=== PATIENT | male | born 1955 | race American Indian/Alaskan Native ===

== ENCOUNTER 2017-04-23 19:41 | Emergency (ER) | payer MEDICARE ==
[2017-04-24] MEDS ORDERED: DELTASONE PO ONE (10:22)
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
[2017-04-24 10:25] VITALS: BP 136/82
== END 2017-04-24 10:35 | disposition home or self-care (01) ==
LOC: ED 19:41
DX: M25.562 Pain in left knee (principal); M10.9 Gout, unspecified
CPT/HCPCS: 99282; J7512